=== PATIENT | male | born 1970 | race Caucasian/White ===

== ENCOUNTER 2019-12-16 09:57 | Emergency (ER) | payer BC, OTHER ==
--- NOTE | 2019-12-16 10:20 | UC ---
Eye Complaint HPI - HPI Summary HPI Summary: 49yo male presenting with left eye "irritation" since last night when he went to sleep. Patient denies pain, vision changes, photophobia, and drainage. States "its just irritated when I blink. Patient states "the only thing I can think of is maybe something got into my eye while vacuuming yesterday. Denies symptom onset at time of vacuuming, stating it occurred hours later at bedtime. States he has washed his eye out without relief. Patient is concerned for foreign body or corneal abrasion. Denies contact lens use. - History of Current Complaint Chief Complaint: UCEye Stated Complaint: FOREIGN BODY IN EYE Hx Obtained From: Patient Pain Intensity: 2 Pain Scale Used: 0-10 Numeric - Allergies/Home Medications Allergies/Adverse Reactions: Allergies Allergy/AdvReac Type Severity Reaction Status Date / Time No Known Allergies Allergy Verified 12/16/19 10:09 Home Medications: Home Medications Erythromycin OPTH OINT* [Erythromycin 0.5% OPTH OINT*] 1 applic LEFT EYE TID 7 Days #1 ophth.oint 12/16/19 [Rx] PMH/Surg Hx/FS Hx/Imm Hx - Surgical History Surgical History: None - Family History Known Family History: Positive: Non-Contributory - Social History Alcohol Use: Daily Substance Use Type: None Smoking Status (MU): Never Smoked Tobacco Review of Systems All Other Systems Reviewed And Are Negative: No Constitutional: Positive: Negative Eyes: Positive: Other - "irritation with blinking left eye". Negative: Blurred Vision, Drainage, Eye Redness, Photophobia Respiratory: Positive: Negative Cardiovascular: Positive: Negative Gastrointestinal: Positive: Negative Musculoskeletal: Positive: Negative Neurological/Mental Status: Positive: Negative Physical Exam - Summary Physical Exam Summary: Vital Signs Reviewed: Yes A+Ox3, no distress, well-appearing Eyes: Conjunctiva Clear, EOM intact, eyelid eversion revealed small 1mm area of possible stye forming beneath upper eyelid, no edema, fluorescein stain did not reveal any abrasion, ulceration, or foreign bodies ENT: Hearing grossly normal neck: supple Respiratory: Positive: No respiratory distress, No accessory muscle use Cardiovascular: skin color reflect adequate perfusion Musculoskeletal Exam: BEACH x 4 without difficulty Neurological: Positive: Alert, ambulatory without difficulty Psychological: Positive: age appropriate behavior Skin: Positive: no rash, no ecchymosis Vital Signs: Initial Vital Signs Temp 98.1 F 12/16/19 10:04 Pulse 65 12/16/19 10:04 Resp 18 12/16/19 10:04 BP 134/83 12/16/19 10:04 Pulse Ox 99 12/16/19 10:04 Eye Complaint Course/Dx - Course Course Of Treatment: Fluorescein staining did not reveal any abrasion, ulceration, or foreign bodies. Eyelid eversion revealed possible stye forming beneath upper eyelid but not definitive. I provided patient with erythromycin ointment and stressed importance of warm compresses. Instructed to follow up with Dr. Tobias if symptoms worsen or do not improve within 7 days. Patient voiced understanding and agreed with treatment plan. - Differential Dx/Diagnosis Differential Diagnosis/HQI/PQRI: Conjunctivitis, Corneal Abrasion, Foreign Body Provider Diagnosis: Hordeolum internum left upper eyelid Discharge ED - Sign-Out/Discharge Documenting (check all that apply): Patient Departure All imaging exams completed and their final reports reviewed: No Studies - Discharge Plan Condition: Stable Disposition: HOME Prescriptions: Erythromycin OPTH OINT* [Erythromycin 0.5% OPTH OINT*] 1 applic LEFT EYE TID 7 Days #1 ophth.oint Patient Education Materials: Stye (ED) Referrals: Moy Tobias MD [Medical Doctor] - If Needed Additional Instructions: Use the antibiotic ointment as prescribed. Apply warm compresses to the area 2-3 times daily until symptoms resolve. Follow up with the ophthalmology referral listed below for further evaluation is symptoms not improving within 1 week. - Billing Disposition and Condition Condition: STABLE Disposition: Home
[2019-12-16] MEDS ORDERED: Fluorescein Sodium TOPICAL* 1 MG TEST STRIP OPHTHALMIC ONE (10:21)
[2019-12-16] MEDS ORDERED: Tetracaine 0.5% OPTH.SOL 4 ML* 1 DROP BTL LEFT EYE ONE (10:21)
== END 2019-12-16 10:46 | disposition home or self-care (01) ==
LOC: UCEAST 09:57
DX: H00.024 Hordeolum internum left upper eyelid (principal)
CPT/HCPCS: 99201; A9270-GY; G0463